=== PATIENT | male | born 1995 | race Caucasian/White ===

== ENCOUNTER → 2017-04-03 11:44 | Outpatient (REF) | payer BC, SELFPAY ==
[2017-04-03 13:22] LABS: Basophils % 0.2 % (0.1-2.0); Eosinophils % 0.5 % (0.1-12.0); Hematocrit 42.6 % (42.0-52.0); Hemoglobin 14.2 g/dL (14.1-18.0); Lymphocytes # 1.6 K/mm3 (0.7-4.5); Lymphocytes % 18.4 K/mm3 (10-50); Mean Corpuscular HGB Conc 33.3 g/dL (31.8-35.4); Mean Corpuscular Hemoglobin 28.2 pg (27.0-31.2); Mean Corpuscular Volume 84.7 fl (80-94); Mean Platelet Volume 9.7 fl (7.4-10.4); Monocytes # 0.8 K/mm3 (0.1-1.0); Monocytes % 9.4 % (1.7-9.3); Neutrophils # 6.3 K/mm3 (1.8-7.8); Neutrophils % 71.4 % (37.0-80.0); Platelet Count 175 K/mm3 (142-424); Red Blood Count 5.03 M/mm3 (4.60-6.20); White Blood Count 8.8 K/mm3 (4.8-10.8)
[2017-04-03 14:05] LABS: Hemoglobin A1C 5.7 % (0.0-7.0)
[2017-04-03 14:12] LABS: Alanine Aminotransferase 40 U/L (12-78); Albumin Level 3.8 gm/dL (3.4-5.0); Albumin/Globulin Ratio 1.1 (1.1-1.8); Alkaline Phosphatase 89 U/L (46-116); Anion Gap 14.1 mEq/L (5-15); Aspartate Amino Transferase 16 U/L (15-37); Bilirubin,Total 0.6 mg/dL (0.2-1.0); Blood Urea Nitrogen 11 mg/dL (7-18); Calcium 8.4 mg/dL (8.5-10.1); Carbon Dioxide 26 mmol/L (21.0-32.0); Chloride 105 mmol/L (98-107); Chol/HDL Ratio 4.8 (1-3.5); Cholesterol 181 mg/dL (140-200); Creatinine,Serum 0.82 mg/dL (0.70-1.30); Estimated Glomerular Filt Rate 116 ml/min (>60); Free T4 (Free Thyroxine) 0.78 ng/dl (0.76-1.46); GFR (African American) 141 ML/MIN (>60); Globulin 3.4 gm/dl (1.3-3.2); Glucose 99 mg/dL (74-106); HDL Cholesterol 38 mg/dL (27-67); LDL Cholesterol 120 mg/dL (0-130); Potassium 4.1 mmoL/L (3.5-5.1); Sodium 141 mmol/L (136-145); Total Protein,Serum 7.2 gm/dL (6.4-8.2); Triglycerides 115 mg/dL (30-200); VLDL Cholesterol 23 mg/dL (0-40)
[2017-04-04 10:57] LABS: Vitamin D 25 Hydroxy 27.8 ng/mL (30.0-100.0)
== END ==
LOC: LAB 11:44
PROVIDERS: Visit Provider Nurse Practitioner Family
DX: R53.83 Other fatigue (principal); J02.9 Acute pharyngitis, unspecified
CPT/HCPCS: 80053; 80061; 82652; 83036; 84439; 84443; 85025

== ENCOUNTER → 2018-06-25 14:01 | Outpatient (CLI) | payer BC, SELFPAY ==
--- NOTE | 2018-06-25 14:03 | MR_ITS ---
MR knee LT wo con Ordering Physician: Alfredo Keene MD Patient Age: 23 years: Male HISTORY: ITS.REASON: evaluate for meniscal tear Knee pain 2-3 weeks. Patient injured knee pain is lateral and as well as some medial pain. Some swelling. TECHNIQUE: Multiplanar multisequence imaging on 1.5 T Siemens MRI. COMPARISON : Plain films of the left knee from 06/05/2018. FINDINGS The PCL is well visualized but the ACL is not. . highly suspect for ACL tear. Ill-defined amorphous appearance along the course of ACL on all of these images. . There is an associated bone contusion pattern further supporting injury pattern, associated with such. BONE CONTUSION Injuries.: Prominent. Bone contusion lateral tibial plateau, most pronounced evident posteriorly. Prominent Diffuse bone edema along the lateral tibial plateau extends medially to the region beneath the PCL, as well as extends laterally to the articulation the fibular head. Contusion also seen adjacent fibular head. There is a line passing into the posterior reflecting either fluid-filled prominent vascular channel with fluid versus tiny microfracture seen sagittal image 16, 15, extending from anteriorly along the path of the old close growth plate. Also bone contusion at the lateral femoral condyle. Most evident at its lateral margin beneath weightbearing surface Sagittal images show Slight undulation of the the contour of the lateral femoral condyle just above the anterior horn of lateral meniscus. This can at times be seen as normal variant. But it may reflect a mild impaction injury particularly noted in the the bone edema is most pronounced deep to this this area. The Anterior horn lateral meniscus in this area is intact mainly intact, although of close inspection there could be a very subtle vertical hairline tear passing through the anterior horn of the meniscus on sagittal image16.. Equivocal Lateral Meniscal Tear at the posterior horn is convincing: On sagittal image 15 there appear there also appears to be a limited vertical tear passing through the inferior surface of the posterior horn lateral meniscus.. . On sagittal image 16 the posterior horn appears slightly truncated with slight irregularity at the superior surface. . Patellofemoral Joint:. Intact. Prominent joint effusion most evident suprapatella bursa. Medial compartment.: The medial meniscus is intact. Cartilage is well-maintained. . There is mild bone contusion at the medial face of the medial femoral condyle. Edema overlies this area possibly with I suspect some mild injury to the medial joint capsule insertion region suspect.. Also the medial collateral ligament appears abnormal..-Suspect tear, mainly undersurface tear. This can be seen on axial image 14, 13 as well coronal images of the MCL..... ......... IMPRESSION......... 1. ACL tear 2. Prominent bone contusion injuries associated. ..Most evident bone contusion is seen beneath posterior aspect of the lateral tibial plateau. ..This Bone contusion extending to involve both sides of the tibial-fibular articulation . Also bone contusion at lateral femoral condyle. Lateral Margin & beneath lateral weightbearing surface lateral femoral condyle . Undulation at lateral femoral condyle weightbearing surface can be normal variation to accommodate the anterior horn, however given the prominent bone edema just beneath this area of cortical undulation, would raise the possibility of a mild impaction injury.. 3.... Lateral Meniscal Tear-most definitive tear seen involving Posterior Horn of lateral meniscus.. Only Question possible tiny hairline vertical tear at the anterior horn lateral meniscus-equivocal. 4. Large joint effusion. 5. Small contusion
== END ==
PROVIDERS: PCP Emergency Medicine; Visit Provider Orthopaedic Surgery
DX: S83.91XA Sprain of unspecified site of right knee, initial encounter (principal)
CPT/HCPCS: 73721

== ENCOUNTER 2018-06-29 10:19 | Outpatient (RCR) | payer BC, SELFPAY | END 2018-06-29 10:25 | disposition home or self-care (01) | LOC: PT 10:19 | PROVIDERS: Visit Provider Orthopaedic Surgery | DX: S89.91XD Unspecified injury of right lower leg, subsequent encounter (principal); S83.412D Sprain of medial collateral ligament of left knee, subsequent encounter; S83.282D Other tear of lateral meniscus, current injury, left knee, subsequent encounter; M25.461 Effusion, right knee | CPT/HCPCS: 97760 ==

== ENCOUNTER 2018-07-17 10:12 | Outpatient (RCR) | payer BC, SELFPAY | END 2018-07-17 10:30 | disposition home or self-care (01) | LOC: PT 10:12 | PROVIDERS: Visit Provider Orthopaedic Surgery | DX: S89.91XD Unspecified injury of right lower leg, subsequent encounter (principal); S83.412D Sprain of medial collateral ligament of left knee, subsequent encounter; S83.512D Sprain of anterior cruciate ligament of left knee, subsequent encounter; S83.282D Other tear of lateral meniscus, current injury, left knee, subsequent encounter ==

== ENCOUNTER 2022-05-26 18:10 | Emergency (ER) | payer BC, SELFPAY ==
[2022-05-26 18:37] VITALS: BP 167/83; PULSE 95; RESP 20; TEMP 37.9; O2SAT 100; BMI 37.1
[2022-05-26 18:53] VITALS: BP 167/83; PULSE 95; RESP 20; TEMP 37.9; O2SAT 100
[2022-05-26 18:53] LABS: UTC Strep Screen (Rapid) Negative (Negative)
[2022-05-26 19:01] LABS: Bordetella Pertussis Not Detected (NotDetected); Chlamydophila Pneumoniae, PCR Not Detected (NotDetected); Coronavirus 19, PCR Not Detected (NotDetected); Coronavirus 229E Not Detected (NotDetected); Coronavirus NL63 Not Detected (NotDetected); Coronavirus OC43 Not Detected (NotDetected); Coronovirus HKU1,PCR Not Detected (NotDetected); Human Metapneumovirus Not Detected (NotDetected); Influenza A, PCR Not Detected (NotDetected); Influenza AH1, 2009 Not Detected (NotDetected); Influenza AH1, PCR Not Detected (NotDetected); Influenza AH3,PCR Not Detected (NotDetected); Influenza B, PCR Not Detected (NotDetected); Mycoplasma Pneumoniae, PCR Not Detected (NotDetected); Parainfluenza 1, PCR Not Detected (NotDetected); Parainfluenza 2, PCR Not Detected (NotDetected); Parainfluenza 3, PCR Not Detected (NotDetected); Parainfluenza 4, PCR Not Detected (NotDetected); Respiratory Syncytial Virus Not Detected (NotDetected); Rhinovirus/Enterovirus Not Detected (NotDetected)
--- NOTE | 2022-05-26 19:19 | EXP.UTC ---
Discharge Plan Disposition Patient Disposition: Home, Self-Care Condition: Good Prescriptions Prescriptions: New azithromycin [Zithromax Z-Vince] 250 mg tablet See Rx Instructions .ROUTE .COMPLEX 5 Days Qty: 6 0RF Rx Instructions: For 250 mg dose pack: take 500 mg today (day 1), then 250 mg for 4 days (days 2-5) benzonatate 100 mg capsule 100 mg PO TID PRN (Reason: cough) Qty: 30 0RF methylprednisolone [Medrol (Vince)] 4 mg tablets,dose pack See Rx Instructions .Route .COMPLEX 6 Days Qty: 21 0RF Rx Instructions: taper pack; Referrals Follow up/Referrals: Terell Moon MD [Primary Care Provider] - See instructions Activity Restrictions/Add. Instructions Additional Instructions/Restrictions: *Monitor Temp, Over the counter Motrin or Tylenol as directed/as needed Tylenol every 4 hours and Motrin every 6 hours (as long as your family doctor has told you that you can take it) for fever or pain. and straight to ER if unable to lower temp less than 101.0 after medication given *Warm salt water gargles may help to soothe the throat *Throat Lozenges? *Warm fluids like tea with honey may help to soothe the throat? *Sleep elevated? *Humidifier/Vaporizer Your throat swab was sent for culture. Those results are typically sent to your primary care. Be sure to follow up in 2-3 days with your family doctor/primary care physician if no improvement so they can review those result and treat if necessary. If you don?t have a primary care doctor, I recommend you get one but in the mean time, you will have to return to a walk in clinic Follow up IMMEDIATELY for new or worsening symptoms or no Noticeable improvement over the next 48-72 hours. 911 for difficulty breathing or swallowing You were tested for today for ?Upper Respiratory Panel with COVID19 your test result should be back in the next 24-48 hours, you may check your results on the [facility] Portal Clinical Impressions Clinical Impression: Sinusitis Qualifiers: Sinusitis location: unspecified location Chronicity: unspecified Qualified Code(s): J32.9 - Chronic sinusitis, unspecified Stand Alone Forms Stand Alone Forms: Work/School Release Instructions Patient Instructions: Sinusitis, DI for Sinusitis Discharge ED Provider: Janice Tomas [facility] [place] General Stated complaint: body ache headache congestion Mode of Arrival: Ambulatory Source of Information: Patient Limitations: No Limitations Time Seen by Provider: 05/26/22 19:19 Description of Symptoms (Recalled from Triage Doc. by RN): pt reports fever, headache, body aches, cough, congestion, and sore throat for 2 days HEENT Symptoms (Recalled from RN notes): Yes (headache, congestion, sore throat) Resp Symptoms (Recalled from RN notes): Yes (cough) Skin Symptoms (Recalled from RN notes): No MS Symptoms (Recalled from RN notes): No Functional Status (Recalled from RN notes): wnl History of Present Illness Provider Complaint: Patient states that he has been having sinus pain and pressure for almost 2 weeks State that he thought it was allergies but for the last couple of days he has got worse State that he has been having sore throat, fever, chills, headache, cough and congestion States that today he had a fever of 102.0 so his made him come in and get checked out Related Data Previous Rx's Medication Instructions Recorded azithromycin 250 mg tablet See Rx Instructions PO .COMPLEX 5 05/26/22 (Zithromax Z-Vince) days #6 tabs benzonatate 100 mg capsule 100 mg PO TID PRN cough #30 caps 05/26/22 methylprednisolone 4 mg tablets in See Rx Instructions .Route 05/26/22 a dose pack (Medrol (Vince)) .COMPLEX 6 days #21 tabs Allergies Allergy/AdvReac Type Severity Reaction Status Date / Time Penicillins [PENICILLINS] Allergy Unknown Verified 02/23/21 13:33 Worker's Comp Is this a Worker's Comp case?: No Is this an [facility] Worker's Comp?: No Is this a Jose Hernandez
[2022-05-26 20:49] LABS: Adenovirus,PCR Detected (NotDetected)
== END 2022-05-26 19:40 | disposition home or self-care (01) ==
PROVIDERS: Emergency Provider Nurse Practitioner; PCP Emergency Medicine
DX: J01.90 Acute sinusitis, unspecified (principal); R50.9 Fever, unspecified; B97.0 Adenovirus as the cause of diseases classified elsewhere; F17.200 Nicotine dependence, unspecified, uncomplicated; Z20.822 Contact with and (suspected) exposure to COVID-19
CPT/HCPCS: 87581; 87632; 87798; 87880; 99212; 99214; C9803; G0463; U0003; U0005

== ENCOUNTER 2023-11-03 08:46 | Outpatient (CLI) | payer BC, SELFPAY ==
[2023-11-03 18:46] LABS: Basophils # 0.1 K/mm3 (0-0.2); Basophils % 0.8 % (0.1-2.0); Eosinophils # 0.2 K/mm3 (0.0-0.4); Eosinophils % 2.6 % (0.1-12.0); Hematocrit 49.2 % (42.0-52.0); Hemoglobin 16.2 g/dL (14.1-18.0); Lymphocytes # 1.6 K/mm3 (0.7-4.5); Lymphocytes % 26.4 % (10-50); Mean Corpuscular HGB Conc 32.8 g/dL (31.8-35.4); Mean Corpuscular Hemoglobin 28.9 pg (27.0-31.2); Mean Platelet Volume 10.7 fl (7.4-10.4); Monocytes # 0.4 K/mm3 (0.1-1.0); Monocytes % 6.3 % (1.7-9.3); Platelet Count 192 K/mm3 (142-424); Red Blood Count 5.59 M/mm3 (4.60-6.20); Red Cell Distribution Width 13.9 % (11.5-17.5); White Blood Count 6.2 K/mm3 (4.8-10.8)
[2023-11-03 19:10] LABS: Alanine Aminotransferase 63 U/L (12-78); Albumin Level 4.2 g/dl (3.5-5.0); Albumin/Globulin Ratio 1.3 (1.1-1.8); Alkaline Phosphatase 87 U/L (38-126); Anion Gap 12.4 mEq/L (5-15); Aspartate Amino Transferase 32 U/L (17-59); Bilirubin,Total 0.5 mg/dl (0.2-1.3); Blood Urea Nitrogen 12 mg/dl (9-20); Calcium 9.4 mg/dl (8.4-10.2); Carbon Dioxide 24 mmol/L (22.0-30.0); Chloride 107 mmol/L (98-107); Chol/HDL Ratio 7.7 (1-3.5); Cholesterol 224 mg/dl (140-200); Estimated Glomerular Filt Rate 133 ml/min (>60); GFR (African American) 161 ML/MIN (>60); Globulin 3.2 g/dL (1.3-3.2); Glucose 86 mg/dl (74-100); HDL Cholesterol 29 mg/dl (40-60); Potassium 4.4 mmoL/L (3.5-5.1); Sodium 139 mmol/L (136-145); Total Protein,Serum 7.4 g/dl (6.3-8.2)
[2023-11-03 19:21] LABS: Direct LDL Cholesterol 83.91 mg/dL (100-129)
[2023-11-03 19:34] LABS: 25-OH Vitamin D, Total 31.1 ng/mL (30-100); Triglycerides 596 mg/dl (30-150)
[2023-11-03 19:40] LABS: Thyroid Stimulating Hormone 0.62 uIU/mL (0.465-4.68)
== END 2023-11-03 23:59 | disposition home or self-care (01) ==
LOC: LAB.DROPOF 11-06 08:46
PROVIDERS: PCP Family Medicine; Visit Provider Family Medicine
DX: I10 Essential (primary) hypertension (principal); R53.83 Other fatigue; Z72.0 Tobacco use
CPT/HCPCS: 80050; 80053; 80061; 82306; 84443; 85025

== ENCOUNTER 2025-01-09 18:57 | Outpatient (CLI) | payer BC, SELFPAY ==
[2025-01-09 19:08] LABS: Albumin Level 5.1 g/dl (3.5-5.0); Chloride 102 mmol/L (98-107)
[2025-01-09 19:09] LABS: Potassium 4.8 mmoL/L (3.5-5.1); Sodium 139 mmol/L (136-145)
[2025-01-09 19:11] LABS: Alanine Aminotransferase 39 U/L (12-78); Albumin/Globulin Ratio 2.2 (1.1-1.8); Alkaline Phosphatase 76 U/L (38-126); Anion Gap 13.8 mEq/L (5-15); Aspartate Amino Transferase 26 U/L (17-59); Bilirubin,Total 0.7 mg/dl (0.2-1.3); Blood Urea Nitrogen 18 mg/dl (9-20); Carbon Dioxide 28 mmol/L (22.0-30.0); Creatinine,Serum 1.00 mg/dl (0.66-1.25); Estimated Glomerular Filt Rate 88 ml/min (>60); GFR (African American) 106 ML/MIN (>60); Globulin 2.3 g/dL (1.3-3.2); Hematocrit 40.4 % (42.0-52.0); Hemoglobin 14.1 g/dL (14.1-18.0); Immature Granulocytes % 0.3 %; Mean Corpuscular HGB Conc 34.9 g/dL (31.8-35.4); Mean Corpuscular Hemoglobin 29.3 pg (27.0-31.2); Mean Corpuscular Volume 84.0 fl (80-94); Nucleated Red Blood Cells % 0 %; Platelet Count 205 K/mm3 (142-424); Red Blood Count 4.81 M/mm3 (4.60-6.20); Red Cell Distribution Width-SD 37.8 fL; Total Protein,Serum 7.4 g/dl (6.3-8.2); White Blood Count 7.0 K/mm3 (4.8-10.8)
[2025-01-09 19:12] LABS: Calcium 8.8 mg/dl (8.4-10.2); Cholesterol 209 mg/dl (140-200); Glucose 95 mg/dl (74-100); HDL Cholesterol 29 mg/dl (40-60); Triglycerides 392 mg/dl (30-150)
[2025-01-09 19:16] LABS: Hemoglobin A1C 5.6 % (4.0-6.0)
[2025-01-09 19:42] LABS: Thyroid Stimulating Hormone 0.50 uIU/mL (0.465-4.68)
== END 2025-01-09 23:59 | disposition home or self-care (01) ==
LOC: LAB.DROPOF 18:58
PROVIDERS: PCP Family Medicine; Visit Provider Family Medicine
DX: E78.5 Hyperlipidemia, unspecified (principal); I10 Essential (primary) hypertension; E66.9 Obesity, unspecified; Z83.3 Family history of diabetes mellitus
CPT/HCPCS: 80053; 80061; 83036; 84443; 85025